=== PATIENT | female | born 1985 | race Two or more races ===

== ENCOUNTER 2020-09-11 13:16 | Emergency (ER) | payer OTHER ==
[~2020-09-11] VITALS: Ht 170.2 cm; Wt 104.3 kg
[2020-09-11] MEDS ORDERED: KETO10TA2 PO (16:08)
[2020-09-11] MEDS ORDERED: DIAZEPAM5 MG PO (16:08)
[2020-09-11] MEDS ORDERED: PERCOCET 5-3251 EACH PO (16:08)
== END 2020-09-11 18:10 | disposition home or self-care (01) ==
LOC: ER 13:16
DX: M54.12 Radiculopathy, cervical region (principal); M54.2 Cervicalgia; M62.838 Other muscle spasm

== ENCOUNTER 2020-09-19 08:24 | Outpatient (CLI) | payer OTHER ==
[~2020-09-19 08:24] MED LIST: DIAZEPAM5 MG PO; KETO10TA2 PO; PERCOCET 5-3251 EACH PO
== END 2020-09-19 08:43 | disposition home or self-care (01) ==
LOC: MRI 08:24
PROVIDERS: ATTEND General Practice
DX: M54.2 Cervicalgia (principal); M47.812 Spondylosis without myelopathy or radiculopathy, cervical region
CPT/HCPCS: 72141